=== PATIENT | female | born 1995 | race Two or more races ===

== ENCOUNTER 2017-07-07 21:15 | Inpatient (IN) | payer BC ==
--- NOTE | 2017-07-07 21:25 | EDPHY ---
H & P Source: Patient Exam Limitations: Intoxication (Alcohol) Time Seen by Provider: 07/07/17 21:24 HPI/ROS: HPI: This is a 21-year-old female who presents with Chief Complaint: M1 hold Location: psych Quality:M1 hold Duration: Today Signs and Symptoms: no auditory and visual command hallucinations, + suicidal ideation with a plan, no homicidal ideation, not paranoid Timing: Acute on chronic Severity: Moderate to severe Context: Patient presents via EMS and with [facility] on M1 hold. Jeni found her lying down cold and curled in a ball in the snow. Patient states that she wishes that she was . She wants to be an [employer]. Admits to drinking alcohol today starting this afternoon. Reports she has been walking around all day. History of bipolar disorder but believes that she does not have this and quit taking her Abilify approximately 1 week ago secondary to a "making her feel bad." Patient reports that she wants to drinking of alcohol that she falls asleep and does not wake up. Patient denies being admitted for inpatient psychiatric treatment in the past. Denies any illicit drug use. Modifying Factors: None Comment: ROS: see HPI Constitutional: No fever, no chills, no weight loss Eyes: No blurred vision Respiratory: No shortness of breath, no cough Cardiovascular: No chest pain Gastrointestinal: No nausea, no vomiting, no diarrhea Genitourinary: No dysuria Extremities: No myalgias Neurologic: No weakness, no numbness Skin: No rashes Hematologic: No bruising, no bleeding MEDICAL/SURGICAL/SOCIAL HISTORY: Medical history: Generally healthy. Does not take any regular medications. Surgical history: Denies Social history: Unemployed. Lives with grandparents. Has a child. CONSTITUTIONAL: Calm and cooperative, flat affect, smells of alcohol, young adult female, awake and alert, no obvious distress HEENT: Atraumatic and normocephalic, PERRL, EOMI. Tympanic membranes clear. Oropharynx clear, no exudate and moist pink mucosa. Airway patent. No lymphadenopathy. No meningismus. Cardiovascular: Normal S1/S2, regular rate, regular rhythm, without murmur rub or gallop. PULMONARY/CHEST: Symmetrical and nontender. Clear to auscultation bilaterally. Good air movement. No accessory muscle usage. ABDOMEN: Soft, nondistended, nontender, no rebound, no guarding, no peritoneal signs, no masses or organomegaly. No CVAT. EXTREMITIES: 2/2 pulses, strength 5/5, no deformities, no clubbing, no cyanosis or edema. NEUROLOGICAL: no focal neuro deficits. GCS 15. SKIN: Warm and dry, no erythema. no rash. Good capillary refill. PSYCH: Poor eye contact, no flight of ideas, organized thought process, fair insight and judgment, no auditory and visual command hallucinations, + suicidal ideation with a plan, no homicidal ideation, not paranoid (Belkis Love) Constitutional: Initial Vital Signs Temperature (C) 36.5 C 07/07/17 21:26 Heart Rate 90 07/07/17 21:26 Respiratory Rate 16 07/07/17 21:26 Blood Pressure 140/73 H 07/07/17 21:26 O2 Sat (%) 95 07/07/17 21:26 O2 Delivery Mode Room Air Allergies/Adverse Reactions: No Known Allergies Allergy (Unverified 07/07/17 21:25) Home Medications: Medication Instructions Recorded NK [No Known Home Meds] 07/07/17 Medical Decision Making ED Course/Re-evaluation: The patient was evaluated and managed by the physician insurance sales assistant. I have reviewed this chart and I agree with the findings and plan of care as documented , as indicated by my signature. I am the secondary supervising physician. ( Jeanine Romero) 6: Agree with M1 hold. Labs and UDS ordered. Currently calm and cooperative. 2210: Serum ethanol level 143. Labs reviewed and grossly unremarkable. Urine drug screen negative. 2230: Breathalyzer 37; medically clear for mental health evaluation. 0005: End of shift. Signed over to Dr. Shearer pending mental health evaluation and final disposition. (Belkis Love) 3:09 a.m.- Patient was evaluated by the mental health worker. Recommendation was made for hospitalization as the patient is suicidal. The patient has been accepted to [address] [place] [address] Rucker. I have completed the EMTALA form. (Lazara Shearer) Differential Diagnosis: Differential diagnosis includes but is not limited to functional in situational depression, suicidal ideation, bipolar disorder depressive type, alcohol intoxication. (Belkis Love) - Data Points Laboratory Results: Laboratory Results 07/07/17 21:30 07/07/17 21:30 07/07/17 07/07/17 07/07/17 21:30 21:30 21:30 WBC 8.98 10^3/uL 10^3/uL (3.80-9.50) RBC 5.09 10^6/uL 10^6/uL (4.18-5.33) Hgb 15.9 g/dL g/dL (12.6-16.3) Hct 44.8 % % (38.0-47.0) MCV 88.0 fL fL (81.5-99.8) MCH 31.2 pg pg (27.9-34.1) MCHC 35.5 g/dL g/dL (32.4-36.7) RDW 11.6 % % (11.5-15.2) Plt Count 247 10^3/uL 10^3/uL (150-400) MPV 11.1 fL fL (8.7-11.7) Neut % (Auto) 62.1 % % (39.3-74.2) Lymph % (Auto) 29.2 % % (15.0-45.0) [place] % (Auto) 5.6 % % (4.5-13.0) Eos % (Auto) 2.1 % % (0.6-7.6) Baso % (Auto) 0.7 % % (0.3-1.7) Nucleat RBC Rel Count 0.0 % % (0.0-0.2) Absolute Neuts (auto) 5.58 10^3/uL 10^3/uL (1.70-6.50) Absolute Lymphs (auto) 2.62 10^3/uL 10^3/uL (1.00-3.00) Absolute Monos (auto) 0.50 10^3/uL 10^3/uL (0.30-0.80) Absolute Eos (auto) 0.19 10^3/uL 10^3/uL (0.03-0.40) Absolute Basos (auto) 0.06 10^3/uL 10^3/uL (0.02-0.10) Absolute Nucleated RBC 0.00 10^3/uL 10^3/uL (0-0.01) Immature Gran % 0.3 % % (0.0-1.1) Immature Gran # 0.03 10^3/uL 10^3/uL (0.00-0.10) Sodium 149 mEq/L H mEq/L (135-145) Potassium 3.7 mEq/L mEq/L (3.5-5.2) Chloride 114 mEq/L H mEq/L (97-110) Carbon Dioxide 18 mEq/l L mEq/l (22-31) Anion Gap 17 mEq/L H mEq/L (8-16) BUN 11 mg/dL mg/dL (7-23) Creatinine 0.5 mg/dL L mg/dL (0.6-1.0) Estimated GFR > 60 Glucose 98 mg/dL mg/dL (70-100) Calcium 9.4 mg/dL mg/dL (8.5-10.4) Beta HCG, Qual NEGATIVE Urine Opiates Screen Urine Barbiturates Ur Phencyclidine Scrn Ur Amphetamine Screen U Benzodiazepines Scrn Urine Cocaine Screen U Marijuana (THC) Screen Ethyl Alcohol 143 mg/dL H mg/dL (0-10) 07/07/17 21:20 WBC RBC Hgb Hct MCV MCH MCHC RDW Plt Count MPV Neut % (Auto) Lymph % (Auto) [place] % (Auto) Eos % (Auto) Baso % (Auto) Nucleat RBC Rel Count Absolute Neuts (auto) Absolute Lymphs (auto) Absolute Monos (auto) Absolute Eos (auto) Absolute Basos (auto) Absolute Nucleated RBC Immature Gran % Immature Gran # Sodium Potassium Chloride Carbon Dioxide Anion Gap BUN Creatinine Estimated GFR Glucose Calcium Beta HCG, Qual Urine Opiates Screen NEGATIVE (NEGATIVE) Urine Barbiturates NEGATIVE (NEGATIVE) Ur Phencyclidine Scrn NEGATIVE (NEGATIVE) Ur Amphetamine Screen NEGATIVE (NEGATIVE) U Benzodiazepines Scrn NEGATIVE (NEGATIVE) Urine Cocaine Screen NEGATIVE (NEGATIVE) U Marijuana (THC) Screen NEGATIVE (NEGATIVE) Ethyl Alcohol Departure - Departure Disposition: [facility] IP Clinical Impression: Bipolar disorder with severe depression Alcohol intoxication Qualifiers: Complication of substance-induced condition: uncomplicated Qualified Code(s): F10.920 - Alcohol use, unspecified with intoxication, uncomplicated Condition: Fair Referrals: NONE *PRIMARY CARE P,. [Primary Care Provider] - As per Instructions
[2017-07-07 21:37] LABS: PLATELET COUNT 247 10^3/uL (150-400)
[2017-07-08 03:35] VITALS: RESP 16
[2017-07-08] MEDS ORDERED: NICOTINE POLACRILEX 2 MG GUM B PRN (04:00)
[2017-07-08] MEDS ORDERED: ACETAMINOPHEN 325 MG TAB PO PRN (04:00)
[2017-07-08] MEDS ORDERED: MAGNESIUM HYDROXIDE 30 ML UDCUP PO PRN (04:00)
[2017-07-08] MEDS ORDERED: MAG HYDROX/AL HYDROX/SIMETH 30 ML UDCUP PO PRN (04:00)
[2017-07-08] MEDS ORDERED: LORazepam 0.5 MG TAB PO PRN (04:00)
[2017-07-08 05:23] VITALS: BP 116/67; O2SAT 96
[2017-07-08] MEDS: ADDERALL 10 MG TAB PO SCH (12:02)
--- NOTE | 2017-07-08 13:02 | BCON ---
[f rep st] BEHAVIORAL HEALTH CONSULTATION REFERRING PHYSICIAN: Sal Armstrong MD REASON FOR REFERRAL: Medical clearance for inpatient behavioral health stay. HISTORY OF PRESENT ILLNESS: This patient came to the emergency department yesterday on an M1 hold. She had been found by passers by lying down in the snow. She reported that she wanted to drink enough alcohol that she would fall asleep and not wake up. She was evaluated by the mental health team and admitted for further psychiatric care. She is currently without any acute complaints. PAST MEDICAL HISTORY: Bipolar disorder. PAST SURGICAL HISTORY: She has had wisdom teeth extraction. MEDICATIONS: She had been prescribed Abilify, but she was not taking it. SOCIAL HISTORY: She lives with her grandmother. She has a child who also lives with her grandmother. She reports that she is an occasional smoker. She denies chronic use of alcohol, but says that she did drink too much yesterday. 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 FAMILY HISTORY: Noncontributory. REVIEW OF SYSTEMS: A 10-point review of systems was conducted and was negative. In particular, she denies any symptoms of alcohol withdrawal, including no shakes and no sweats. PHYSICAL EXAMINATION: VITAL SIGNS: Blood pressure is 116/67, heart rate is 90 , respiratory rate is 16, oxygen saturation is 96% on room air, temperature is 36.8 degrees centigrade. Her weight is 69.9 kg for a body mass index of 24.1. GENERAL: This is a well-nourished, well-developed woman, appears her chronologic age, cooperative and in no acute distress HEENT: Extraocular movements are intact. Pupils are equal, round, and reactive to light. Mucous membranes are moist. Dentition is in good condition. She has an uncrowded airway, Mallampati class 1. NECK: Supple. HEART: Regular rate and rhythm with no murmurs, rubs, or gallops. LUNGS: Clear to auscultation bilaterally. ABDOMEN: Benign. EXTREMITIES: There is no cyanosis, clubbing, or edema. NEUROLOGIC: She is alert and oriented x3. Cranial nerves II through XII are grossly intact. There is no focal weakness. Sensation is intact to light touch. There is no tremor and gait is within normal limits. LABORATORY STUDIES: From the emergency department: CBC was entirely within normal limits. Serum chemistry showed some dehydration with a sodium of 149 and a chloride of 114. Carbon dioxide was low at 18. She had an elevated anion gap at 17. Creatinine was low at 0.5. Beta hCG was negative for . Toxicology screen in the serum showed ethyl alcohol at 143 mg/dL. Toxicology screen in the urine was negative for any substances of abuse. ASSESSMENT AND RECOMMENDATIONS: 1. Mental health issues pending further evaluation and management per Psychiatry and the mental health team. 2. Ethanol intoxication appears to have resolved. She is not showing any signs or symptoms of withdrawal, so it is likely that she does not have chronic alcohol dependence. However, lorazepam has been prescribed and it would be [place] to observe for any autonomic instability which could point to alcohol withdrawal and might be amenable to treatment with lorazepam. 3. Tobacco use disorder. It is unclear whether she surely has dependence. She was encouraged to quit smoking. I see no medical contraindications to this patient's continued stay in the inpatient behavioral health unit or to any psychiatric medications or procedures. Thank you very much for including me in the care of this patient and please do not hesitate to contact me or the hospitalist service should there be need for further medical evaluation. /[id number]/MODL MTDD
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
[2017-07-09 06:59] VITALS: PULSE 81; TEMP 97.8
[2017-07-09] MEDS: ADDERALL 10 MG TAB PO SCH (08:20)
== END 2017-07-09 15:15 | disposition home or self-care (01) | DRG 881 ==
LOC: BBEH 07-08 03:50
PROVIDERS: ADMIT Psychiatry & Neurology Psychiatry; ATTEND Psychiatry & Neurology Psychiatry
DX: F32.9 Major depressive disorder, single episode, unspecified (principal); F90.9 Attention-deficit hyperactivity disorder, unspecified type; F43.10 Post-traumatic stress disorder, unspecified; F60.7 Dependent personality disorder; F10.920 Alcohol use, unspecified with intoxication, uncomplicated; Z63.0 Problems in relationship with spouse or partner; Z56.0 Unemployment, unspecified
CPT/HCPCS: 80305; G0480

== ENCOUNTER 2017-12-04 18:13 | Emergency (ER) | payer BC, MEDICAID ==
[2017-12-04 18:25] VITALS: BP 128/68
[2017-12-04] MEDS ORDERED: ACETAMINOPHEN 500 MG TAB PO ONE (18:45)
--- NOTE | 2017-12-04 18:48 | EDPHY ---
H & P Time Seen by Provider: 12/04/17 18:20 HPI/ROS: CHIEF COMPLAINT: Ear pain HISTORY OF PRESENT ILLNESS: 22-year-old female, 2 months , or presents complaining of bilateral ear pain. Patient developed a slight cold yesterday with congestion. Symptoms have worsened today. No fever. No cough. No sore throat. She has not take any tnko-khq-olwtiiw medications for her symptoms as she is . Her son is ill with similar symptoms. Denies a fever. Denies chest pain or shortness of breath. No vomiting or diarrhea. No abdominal pain. REVIEW OF SYSTEMS: Aside from elements discussed in the HPI, a comprehensive 10-point review of systems was reviewed and is negative. PAST MEDICAL HISTORY: Denies. 2 months . SOCIAL HISTORY: Nonsmoker. VITAL SIGNS: see nurse's notes. GENERAL: Well-developed, well-nourished, in no acute distress. Patient's sound somewhat congested. HEENT: Atraumatic Eyes: PERRL, EOMI, no conjunctival injection. Ears: TMs are bilaterally erythematous and bulging Nose: No discharge. Mouth: moist mucous membranes. Pharynx: no erythema, no exudates, no swelling, no abscess. Uvula is midline. NECK: Supple, no adenopathy, no meningismus, no tenderness. Negative Kernig's and Brudzinski's. LUNGS: Clear to auscultation bilaterally, no wheezes, rhonchi or rales. CARDIAC: Regular rate and rhythm, no rubs, murmurs or gallops. ABDOMEN: Soft, nontender, bowel sounds normal. BACK: No CVA tenderness. EXTREMITIES: Normal, no edema, FROM. NEURO: Alert and oriented, grossly nonfocal. SKIN: Warm and dry, no rash. PSYCHIATRIC: Normal mentation, no agitation. Smoking Status: Former smoker Constitutional: Initial Vital Signs Temperature (C) 36.8 C 12/04/17 18:22 Heart Rate 84 12/04/17 18:22 Respiratory Rate 18 12/04/17 18:22 Blood Pressure 128/68 H 12/04/17 18:22 O2 Sat (%) 98 12/04/17 18:22 O2 Delivery Mode Room Air Allergies/Adverse Reactions: No Known Allergies Allergy (Unverified 07/07/17 21:25) Home Medications: Medication Instructions Recorded Amoxicillin Trihydrate [Amoxil] 500 mg PO Q8H 7 Days cap 12/04/17 Medical Decision Making ED Course/Re-evaluation: 22-year-old female, 2 months , bilateral otitis media. She has been ill with significant congestion for 48 hr. She was placed on amoxicillin 500 mg by mouth twice daily. She was advised to use Tylenol if needed for headache pain and ear pain. She was advised to follow up with her Exhibition Organiser concerning the use of Benadryl or other [id number] cold and cough medications that may be safe for her to use in . Differential Diagnosis: Differential diagnosis for the patient's primary complaint was considered including but not limited to otitis media, otitis externa, foreign body, perforated tympanic membrane. - Data Points Medications Given: Discontinued Medications Acetaminophen (Tylenol) 1,000 mg PO EDNOW ONE Stop: 12/04/17 18:46 Last Admin: 12/04/17 18:51 Dose: 1,000 mg Amoxicillin (Amoxicillin) 500 mg PO EDNOW ONE PRN Reason: Protocol Stop: 12/04/17 18:46 Last Admin: 12/04/17 18:51 Dose: 500 mg Departure - Departure Disposition: Home, Routine, Self-Care Clinical Impression: Acute otitis media Qualifiers: Otitis media type: suppurative Laterality: bilateral Recurrence: not specified as recurrent Spontaneous tympanic membrane rupture: without spontaneous rupture Qualified Code(s): H66.003 - Acute suppurative otitis media without spontaneous rupture of ear drum, bilateral Condition: Good Instructions: Ear Infection (ED), Upper Respiratory Infection (ED) Additional Instructions: For your cold symptoms, you may take Tylenol 650-1000 mg every 4-6 hours to help with throat pain and ear pain. Please run humidifier in your room at night. Nasal saline washes may be used to help with congestion. Do not use Flonase nasal spray. Please discuss with your OBGYN whether or not Benadryl is recommended for you to use in as a antihistamine. You should also discussed the use of Afrin nasal spray. Safety these medications in she be discussed with your OBGYN doctor. Please take antibiotics as directed. Amoxicillin 500 mg by mouth 3 times a day for the next 7 days. Please drink plenty of fluid. Please get plenty of rest. Referrals: NONE *PRIMARY CARE P,. [Primary Care Provider] - As per Instructions Prescriptions: Amoxicillin Trihydrate [Amoxil] 500 mg PO Q8H 7 Days cap
== END 2017-12-04 19:09 | disposition home or self-care (01) ==
LOC: CED 18:13
DX: H66.003 Acute suppurative otitis media without spontaneous rupture of ear drum, bilateral (principal); O99.89 Other specified diseases and conditions complicating pregnancy, childbirth and the puerperium; Z3A.08 8 weeks gestation of pregnancy